=== PATIENT | female | born 1960 | race African-American/Black ===

== ENCOUNTER 2024-06-12 17:50 | Emergency (ER) | payer OTHER, MEDICAID ==
[~2024-06-12] VITALS: Ht 165.1 cm; Wt 104.0 kg
[~2024-06-12 17:50] MED LIST: CORT25; FERR1TAB84; FURO-152; INSU100I7; LIDO700A; LISI-186
[2024-06-12 18:13] VITALS: O2SAT 97
[2024-06-12 19:09] LABS: CHLORIDE 107 mEq/L (98-107); POTASSIUM 3.8 mEq/L (3.5-5.1); SODIUM 145 mEq/L (136-145)
[2024-06-12 19:10] LABS: CARBON DIOXIDE 31 mEq/L (21-32)
[2024-06-12 19:11] LABS: CALCIUM 9.3 mg/dL (8.7-10.4)
[2024-06-12 19:15] LABS: CREATININE 1.9 mg/dL (0.6-1.0); GLUCOSE 197 mg/dL (70-105)
[2024-06-12 19:16] LABS: TROPONIN I HIGH SENSITIVITY 9 ng/L (3.0-34); UREA NITROGEN BLOOD 15 mg/dL (9-23)
[2024-06-12 19:17] LABS: ALANINE AMINOTRANSFERASE 43 IU/L (10-49); ALBUMIN 4.2 g/dL (3.2-4.8); ASPARTATE AMINOTRANSFERASE 39 IU/L (<34)
[2024-06-12 19:18] LABS: BILIRUBIN TOTAL 0.3 mg/dL (0.1-1.0); INR 3.2; PROTEIN TOTAL 7.1 g/dL (6.0-8.3); PROTHROMBIN TIME 30.5 sec (9.6-11.0)
[2024-06-12 19:19] LABS: BILIRUBIN DIRECT < 0.1 mg/dL (<=3.0)
[2024-06-12 19:45] LABS: BASOPHILS % 0.7 % (0.0-2.0); EOSINOPHILS % 2.9 % (0.0-5.0); HEMATOCRIT. 29.5 % (36.0-48.0); HEMOGLOBIN. 9.9 g/dL (12.0-16.0); LYMPHOCYTES % 47.2 % (20.0-50.0); MEAN CORPUSCULAR HEMOGLOBIN 31.3 pg (28.0-32.0); MEAN CORPUSCULAR HGB CONC 33.5 g/dL (31.0-37.0); MEAN CORPUSCULAR VOLUME 93.6 fL (81.0-99.0); MEAN PLATELET VOLUME 8.1 fl (7.4-10.4); MONOCYTES % 5.3 % (2.0-8.0); NEUTROPHILS % 43.9 % (40.0-76.0); PLATELET 323 x1000/uL (130-400); RED BLOOD CELL COUNT 3.16 mill/uL (4.2-5.4); RED CELL DISTRIBUTION WIDTH 14.3 % (11.6-14.6); WHITE BLOOD COUNT 6.3 x1000/uL (4.5-11.0)
[2024-06-12] MEDS: SODIUM CHLORIDE 0.9% 1,000 ML IV ONE (20:53)
[2024-06-12] MEDS: FUROSEMIDE 40MG/4ML VIAL IVP ONE (21:45)
[2024-06-13 01:39] VITALS: BP 116/72; PULSE 81; RESP 20; TEMP 36.7; O2SAT 100
== END 2024-06-13 02:10 | disposition short-term general hospital (02) ==
LOC: ER 17:50
DX: I50.9 Heart failure, unspecified (principal); N17.9 Acute kidney failure, unspecified; D64.9 Anemia, unspecified; J44.0 Chronic obstructive pulmonary disease with (acute) lower respiratory infection
CPT/HCPCS: 99291; 70450; 96374; 96361; 80076; 80048; 83880; 83605; 83690; 85025; 85610; 86850; 86900; 86901; 87040; 84484; 36415; 84145; 71045; 74176; 93005; J1940; J7030